=== PATIENT | female | born 1965 | race Hispanic/Latino ===

== ENCOUNTER 2022-07-11 17:20 | Emergency (ER) | payer BC ==
[~2022-07-11] VITALS: Ht 160 cm; Wt 76.4 kg
[~2022-07-11 17:20] MED LIST: DEPO-MEDROL80 MG/ML IM; FLEXERIL5 MG PO; HYDROCHLOROT12.5 MG PO; LORTAB 7.5 PO; MULTIVITAMI1 PO; PERCOCET 5/325M1 TAB PO
[2022-07-11 18:05] LABS: HEMATOCRIT 35.9 % (37.0-47.0); HEMOGLOBIN 12.8 g/dl (12.0-16.0); IMMATURE GRANULOCYTES 0.1 % (0.0-5.0); MEAN CELL VOLUME 87.6 fL CALC (80.0-100.0); MEAN CORPUSCULAR HGB 31.2 pG CALC (26.0-32.0); MEAN CORPUSCULAR HGB CONC 35.7 g/dL CAL (32.0-36.0); NEUT# 4.14 thou/uL (2.00-7.15); RED BLOOD COUNT 4.1 mill/uL (4.20-5.60); RED CELL DISTRI WIDTH 12.3 % (11.5-15.5)
[2022-07-11] MEDS ORDERED: GLIPIZIDE ER5 MG PO (18:16)
[2022-07-11] MEDS ORDERED: NORVASC5 M1 PO (18:16)
[2022-07-11 18:18] LABS: ALBUMIN 4.3 g/dL (3.2-5.0); ALKALINE PHOSPHATASE 90 u/l (38-126); ANION GAP 12 (6-22 (CALC)); BUN 12 mg/dL (7-17); BUN/CREATININE RATIO 20 (12-20 (CALC)); CARBON DIOXIDE 24 mmol/l (22-30); CHLORIDE 110 mmol/l (95-108); CREATININE 0.6 mg/dL (0.5-1.0); GFR FOR AFR.AMER. > 60 ML/MIN (>=60 (CALC)); GFR OTHER RACES > 60 ML/MIN (>=60 (CALC)); POTASSIUM 3.5 mmol/l (3.5-5.1); SGOT/AST 42 u/l (14-36); SODIUM 143 mmol/l (137-146); TOTAL PROTEIN 7.7 g/dL (6.3-8.2)
[2022-07-11 18:23] LABS: BILIRUBIN, TOTAL 1.8 mg/dL (0.0-1.4)
[2022-07-11] MEDS ORDERED: TRAMADOL HCL50 MG PO (19:31)
[2022-07-11] MEDS ORDERED: PREDNISONE50 MG PO (19:31)
[2022-07-11 19:41] VITALS: BP 142/87
== END 2022-07-11 20:27 | disposition home or self-care (01) | DRG 552 ==
LOC: ED 17:20
PROVIDERS: Family Medicine
DX: M54.16 Radiculopathy, lumbar region (principal); I10 Essential (primary) hypertension; E11.9 Type 2 diabetes mellitus without complications; Z79.84 Long term (current) use of oral hypoglycemic drugs